=== PATIENT | male | born 1955 | race Hispanic/Latino ===

== ENCOUNTER 2018-09-09 13:35 | Inpatient (IN) | payer OTHER ==
[~2018-09-09] VITALS: Ht 170.2 cm; Wt 118.1 kg
--- OUTSIDE RECORDS SUMMARY | 2018-09-09 13:37 | XMS REPORT ---
Author [facility] Address Unknown Phone Unavailable Care Team Providers Care Warehouse Stock Clerk Name Role Phone Unavailable Unavailable Payers Payer Name Policy Type Policy Number Effective Date Expiration Date Problems This patient has no known problems. Allergies, Adverse Reactions, Alerts Allergy Name Allergy Type Status Severity Reaction(s) Onset Date Inactive Date Treating Clinician Comments No Known Drug Allergies DA Active U 2018-09-05 00:00:00 Medications This patient has no known medications. Results Test Description Test Time Test Comments Text Results Atomic Results Result Comments - NM MYOCRD SPECT R/S MULT 2018-09-06 15:15:00 FAX: Man Stein [phone] Camps: PM St: REG FAX: Giacomo Oconnor [phone] Name: PAWAN REYNOLDS [facility] : 1955 Age/S: 62/M [address] Unit #: [id number] Loc: [place] [address] Phys: Giacomo Terry MD Acct: [id number] Dis Date: Status: REG CLI PHONE #: [phone] Exam Date: 09/06/2018 1113 FAX #: Reason: CHEST PAIN EXAMS: CPT: [id number] NM MYOCRD SPECT R/S MULT 61183 SPECT myocardial perfusion study with gated wall motion and ejection fraction INDICATION: Chest pain LOCATION: T18 Resting images were obtained after administration of 11 mCi Tc-99m sestamibi and stress images were obtained after administration of 30 mCi Tc-99m sestamibi, and 0.4mg Lexiscan. PERFUSION STUDY Small reversible perfusion defect within the inferior wall. No fixed defects to suggest scar or infarct. GATED STUDY Normal wall motion , with a left ventricular ejection fraction of 56%. IMPRESSION: Inferior wall ischemia. Ejection fraction 56%. at 3193 Reported and signed by: Giacomo Lantigua M.D. CC: Man Good MD; Giacomo Terry MD Technologist: GAIL Gauthier Transcribed Date/Time/By: 09/06/2018 (9789) :Masoud Orig Print D/T: S: 09/06/2018 (7456) PAGE 1 Signed Report
--- OUTSIDE RECORDS SUMMARY | 2018-09-09 13:37 | XMS REPORT | Encounter Summary ---
Author Organization Unknown Address [address] [place] [address] Phone [phone] Care Team Providers Care Spray Painter Name Role Phone Dr. Man Reich 3 [phone] Reason for Visit Annual physical - male with PSA Instructions 1. Adult health examination CBC w/ auto diff CMP, serum or plasma lipid panel, serum TSH, serum or plasma 2. Dyspnea on exertion electrocardiogram spirometry cardiology referral 3. Chronic obstructive lung disease Symbicort 160 mcg-4.5 mcg/actuation HFA aerosol inhaler 4. Sleep apnea sleep study referral 5. Depression screening learning about depression 6. Nicotine dependence advised to quit smoking 7. Screening for malignant neoplasm of prostate PSA, serum or plasma 8. Body mass index 30+ - obesity body mass index: care instructions learning about healthy weight 9. Screening for malignant neoplasm of colon fecal occult blood, stool colonoscopy referral 10. Screening for disorder hepatitis C virus RNA, quant, PCR, serum or plasma Discussion Note: None recorded. Plan of Care Patient Goals Patient Target Smoking - How much? None Smoking - How much? None Quitting smoking is important for your health, both in the long-term and the short- term. Quitting smoking can reduce your risk of being diagnosed with life- threatening diseases such as emphysema, cancer and heart disease. Short Term Goals (between now and follow-up appointment): Cut number of cigarettes smoked daily in half Identify smoking triggers Find strategies that help reduce cravings Scheduling Analyst Goals: Fully and permanently quit smoking Improve lung function Reduce health risks by quitting smoking What can increase my chances of success for quitting smoking? Regular exercise Chew gum or hard candy Identify triggers that lead to smoking, and establish new strategies for coping with these situations Keep yourself busy Contact additional resources for support, such as [employer] Don't give up, even if you have a setback How can my healthcare team support me in quitting smoking? Follow up visits to assess progress Identify resources available to help you quit smoking Consider medication to increase your chances of successfully quitting smoking Referral to counseling for additional support Reminders Provider Appointments Return to Office on or around 09/14/2018 Man Good MD Lab CBC W/ Auto Diff 08/15/2018 [facility] CMP, Serum or Plasma 08/15/2018 [facility] PSA, Serum or Plasma 08/15/2018 [facility] Lipid Panel, Serum 08/15/2018 [facility] Fecal Occult Blood, Stool 08/15/2018 [facility] TSH, Serum or Plasma 08/15/2018 [facility] Hepatitis C Virus RNA, Quant, PCR, Serum or Plasma 08/15/2018 [facility] Referral Colonoscopy Referral 08/15/2018 Sleep Study Referral 08/15/2018 Cardiology Referral 08/15/2018 Procedures None recorded. Surgeries None recorded. Imaging Electrocardiogram 08/15/2018 [facility] ([facility] Medications Name Start Date Symbicort 160 mcg-4.5 mcg/actuation HFA aerosol inhaler Inhale 2 puffs twice a day by inhalation route as directed for 30 days. Medications Administered None recorded. Vitals Height Weight BMI Blood Pressure 5 ft 7 in 259 lbs 40.6 kg/m2 139/84 mm[Hg] Lab Results None recorded. Allergies Code Code System Name Reaction Severity Status Onset NKDA Problems No Known Problems Procedures Date Name Performed by 05/10/1999 Appendectomy Information not available 08/15/2018 Electrocardiogram [facility] ([address] [address] (Work Place) Vaccine List None recorded. Social History Smoking Status Heavy Tobacco Smoker (1/2 PPD) Past Encounters 08/15/2018 Adult Health Examination; Dyspnea on Exertion; Chronic Obstructive Lung Disease; Sleep Apnea; Depression Screening; Nicotine Dependence; Screening for Malignant Neoplasm of Prostate; Body Mass Index 30+ - Obesity; Screening for Malignant Neoplasm of Colon; Screening for Disorder Man Good MD: [address] [place] [phone], Ph. History of Present Illness Note:Coming to establish care and for a physical exam. <div>Complaining of feeling fatigued most of the time and falling asleep everywhere. Concomitantly, apneic episodes and persistent snoring at night. </div> Review of Systems Comprehensive General Adult ROS Reported By: Patient Constitutional: Constitutional: no fever, no night sweats, no significant weight gain, no significant weight loss, exercise intolerance Eyes: Eyes: no dry eyes, no vision change, no irritation ENMT: Ears: no difficulty hearing, no ear pain. Nose: no frequent nosebleeds, no nose problems, no sinus problems. Mouth/Throat: no sore throat, no bleeding gums, no snoring, no dry mouth, no mouth ulcers, no oral abnormalities, no teeth problems Cardiovascular: Cardiovascular: no chest pain, no arm pain on exertion, no shortness of breath when lying down, no palpitations, no known heart murmur, no lightheadedness, shortness of breath when walking Respiratory: Respiratory: no cough, no wheezing, no shortness of breath, no coughing up blood, sleep apnea Gastrointestinal: Gastrointestinal: no abdominal pain, no nausea, no vomiting, no constipation, normal appetite, no diarrhea, not vomiting blood, no dyspepsia, no GERD Genitourinary: Genitourinary: no incontinence, no difficulty urinating, no hematuria, no increased frequency Musculoskeletal: Musculoskeletal: no muscle aches, no muscle weakness, no arthralgias/joint pain, no back pain, no swelling in the extremities Integumentary: Skin: no abnormal mole, no jaundice, no rashes, no laceration Neurologic: Neurologic: no loss of consciousness, no weakness, no numbness, no seizures, no dizziness, no migraines, no headaches, no tremor Psychiatric: Psych: no depression, no sleep disturbances, feeling safe in a relationship, no alcohol abuse, no anxiety, no hallucinations, no suicidal thoughts Endocrine: Endocrine: fatigue Hematologic/Lymphatic: Hematologic/Lymphatic no swollen glands, no bruising, no excessive bleeding Allergic/Immunologic: Allergy/Immunologic: no runny nose, no sinus pressure, no itching, no hives, no frequent sneezing Physical Exam General Adult Exam (male) Reported By: Patient Constitutional: General Appearance: healthy-appearing, morbidly obese. Level of Distress: NAD. Ambulation: ambulating normally Psychiatric: Insight: good judgement. Mental Status: active and alert, normal mood, normal affect. Orientation: to time, to place, to person. Memory: recent memory normal, remote memory normal Head: Head: normocephalic, atraumatic Eyes: Lids and Conjunctivae: non-injected, no discharge. EOM: EOMI ENMT: Ears: TMs clear. Nose: no sinus tenderness. Lips, Teeth, and Gums: no mouth or lip ulcers. Oropharynx: moist mucous membranes Neck: Neck: supple, trachea midline. Thyroid: no enlargement, non-tender Lungs: Auscultation: breath sounds normal Cardiovascular: Heart Auscultation: RRR, normal S1, normal S2, no murmurs. Neck vessels: no carotid bruits Abdomen: Inspection and Palpation: soft, non-distended, no tenderness, no guarding Musculoskeletal:: Motor Strength and Tone: normal, normal tone. Joints, Bones, and Muscles: normal movement of all extremities, no contractures, no bony abnormalities, no malalignment, no tenderness. Extremities: no edema Neurologic: Gait and Station: normal gait. Cranial Nerves: grossly intact. Reflexes: DTRs 2+ bilaterally throughout. Coordination and Cerebellum: no tremor Skin: Inspection and palpation: no rash, no lesions Back: Thoracolumbar Appearance: normal curvature
--- OUTSIDE RECORDS SUMMARY | 2018-09-09 13:37 | XMS REPORT | Encounter Summary ---
Author Organization Unknown Address [address] [place] [address] Phone [phone] Care Team Providers Care Time Broker Name Role Phone Dr. Man Reich 3 [phone] Reason for Visit Annual physical - male [...] triggers Find strategies that help reduce cravings Client Experience Administrator Goals: Fully and permanently quit smoking Improve [...] MD Lab CBC W/ Auto Diff 08/15/2018 [facility] CMP, Serum or Plasma 08/15/2018 [facility] PSA, Serum or Plasma 08/15/2018 [facility] Lipid Panel, Serum 08/15/2018 [facility] Fecal Occult Blood, Stool 08/15/2018 [facility] TSH, Serum or Plasma 08/15/2018 [facility] Hepatitis C Virus RNA, Quant, PCR, Serum or Plasma 08/15/2018 [facility] Referral Colonoscopy Referral 08/15/2018 Sleep Study Referral 08/15/2018 Cardiology Referral 08/15/2018 Procedures None recorded. Surgeries None recorded. Imaging Electrocardiogram 08/15/2018 [facility] ([facility] Medications Name Start Date Symbicort 160 [...] 05/10/1999 Appendectomy Information not available 08/15/2018 Electrocardiogram [facility] ([address] [address] (Work Place) Vaccine List None recorded. Social History Smoking Status Heavy Tobacco Smoker (1/2 PPD) Past Encounters 08/15/2018 Adult Health Examination; Dyspnea on Exertion; Chronic Obstructive Lung Disease; Sleep Apnea; Depression Screening; Nicotine Dependence; Screening for Malignant Neoplasm of Prostate; Body Mass Index 30+ - Obesity; Screening for Malignant Neoplasm of Colon; Screening for Disorder Man Good MD: [address] [place] [phone], Ph. History of Present Illness Note:Coming to [...] no hallucinations, no suicidal thoughts Endocrine: Endocrine: no fatigue Hematologic/Lymphatic: Hematologic/Lymphatic no swollen glands, no [...]
--- NOTE | 2018-09-09 14:54 | Diagnostic Imaging Report ---
EXAM: CHEST SINGLE (PORTABLE) DATE: 09/09/2018 1:50 PM INDICATION:Shortness of breath COMPARISON: None FINDINGS: Lines and tubes: None The cardiac silhouette is moderately enlarged. There is central pulmonary vascular congestion. No peripheral consolidation, large pleural effusion or pneumothorax. Upper abdomen unremarkable. No acute bony abnormality. IMPRESSION: Medically and central pulmonary vascular congestion with interstitial edema. No localized consolidation or pleural effusion. Signed by: Dr. Gus Paul M.D. on 09/09/2018 2:51 PM
[2018-09-09] MEDS ORDERED: ALBUTEROL SULF 0.083% NEB SOLN 3 ML NEB NEB STA (15:10)
[2018-09-09] MEDS ORDERED: IPRATROPIUM BROMIDE 0.02% 2.5 ML NEB NEB ONE (15:15)
[2018-09-09] MEDS ORDERED: METHYLPREDNISOLONE SOD SUCC 125 MG/2ML VIAL IV STA (15:32)
[2018-09-09 15:37] LABS: BASOPHILS % 0.1 % (0.0-1.0); EOSINOPHILS % 0.1 % (0.0-6.0); HEMATOCRIT 58.7 % (38.2-49.6); HEMOGLOBIN 18.7 g/dL (14.0-18.0); LYMPHOCYTES # (AUTO) 0.9 (1.0-3.2); LYMPHOCYTES % 12.7 % (18.0-39.1); MEAN CORPUSCULAR HEMOGLOBIN 30.8 pg (28-32); MEAN CORPUSCULAR HGB CONC 31.9 g/dL (31-35); MEAN CORPUSCULAR VOLUME 96.7 fL (81-99); MONOCYTES # (AUTO) 0.2 (0.2-0.8); MONOCYTES % 3.1 % (4.4-11.3); NEUTROPHILS % 83.4 % (38.7-80.0); PLATELET COUNT 127 x10e3/uL (140-360); RED BLOOD COUNT 6.07 x10e6/uL (4.3-5.7); RED CELL DISTRIBUTION WIDTH 14.9 % (11.7-14.4)
[2018-09-09] MEDS ORDERED: ONDANSETRON HCL INJ 2MG/ML 2ML 2 MG/ML VIAL IV PRN (17:30)
[2018-09-09] MEDS ORDERED: FUROSEMIDE INJ 10 MG/ML 4 ML VIAL IV ONE (17:30)
[2018-09-09] MEDS ORDERED: NITROGLYCERIN 0.4 MG SUBL SL PRN (17:30)
[2018-09-09] MEDS ORDERED: DEXTROSE 50% SYRINGE 50 ML IV PRN (17:30)
[2018-09-09 17:47] LABS: ABG PCO2 73 mmHg (41-51); ABG PH 7.24 (7.31-7.41)
[2018-09-09 17:48] LABS: ABG HCO3 31 mmol/L (23-28); ABG PO2 71 mmHg (80-105)
[2018-09-09 18:26] LABS: ANION GAP 13.1 mmol/L (8-16); BUN/CREATININE RATIO 11 (6-25); EST GLOMERULAR FILTRATION RATE > 60 ML/MIN (60-)
[2018-09-09 18:27] LABS: SODIUM 140 mmol/L (136-144)
[2018-09-09 18:28] LABS: BLOOD UREA NITROGEN 8 mg/dL (8-26); CARBON DIOXIDE 36 mmol/L (22-32); CHLORIDE 96 mmol/L (101-111); CREATININE, SERUM 0.7 mg/dL (0.9-1.3); GLUCOSE 125 mg/dL (74-118); POTASSIUM 5.1 mmol/L (3.6-5.1)
--- NOTE | 2018-09-09 18:50 | NUR ---
REPORT GIVEN TO ELMA HERNANDEZ WATER MECHANIC NURSE.
[2018-09-09] MEDS ORDERED: no home meds (19:43)
[2018-09-09 19:50] LABS: INR 0.86; PROTHROMBIN TIME 12.2 seconds (11.9-14.5)
[2018-09-09] MEDS: CEFTRIAXONE SOD 1 GM/NS 50 ML 50 ML IV SCH (19:52)
[2018-09-09] MEDS: AZITHROMYCIN 500MG/NS 250 ML 250 ML IV SCH (19:52)
[2018-09-09] MEDS: IPRATROPIUM BROMIDE 0.02% 2.5 ML NEB NEB SCH ×2 (19:55→23:00)
[2018-09-09] MEDS: ALBUTEROL SULF 0.083% NEB SOLN 3 ML NEB NEB SCH ×2 (19:56→23:00)
[2018-09-09 20:11] LABS: ALANINE AMINOTRANSFERASE 41 IU/L (0-55); ALBUMIN 3.6 g/dL (3.5-5.0); ALBUMIN/GLOBULIN RATIO 0.8 (0.8-2.0); ALKALINE PHOSPHATASE 91 IU/L (40-150); CALCIUM 9.6 mg/dL (8.4-10.2); CREATINE KINASE 67 IU/L (30-200)
--- NOTE | 2018-09-09 20:40 | NUR ---
Received from ER via bed, bi-pap in use, awake alert and oriented x 3. No c/o pain or discomfort at this time
[2018-09-09 20:45] VITALS: BP 122/53
[2018-09-09 21:00] VITALS: BP_SYST 110; BP_SYST 138; BP_DIAS 57; BP_DIAS 86
[2018-09-09] MEDS ORDERED: PNEUMOCOCCAL VACCINE POLYVALENT 23 MCG/0.5 ML VIAL IM SCH (21:19)
[2018-09-09 22:00] VITALS: BP_SYST 114; BP_DIAS 57; BP_DIAS 58
[2018-09-09] MEDS ORDERED: FUROSEMIDE INJ 10 MG/ML 2 ML VIAL IV ONE (22:30)
[2018-09-09 23:00] VITALS: BP_SYST 113; BP_SYST 138; BP_DIAS 57; BP_DIAS 86
[2018-09-09] MEDS: INSULIN LISPRO 100 UNIT/1 ML 3ML VIAL SQ SCH (23:42)
[2018-09-10] VITALS (24 sets, daily range): BP systolic 114–160; BP diastolic 61–81
--- NOTE | 2018-09-10 01:25 | Consultation ---
DATE OF CONSULTATION: Pulmonary Critical Care Consultation CHIEF COMPLAINT: Dyspnea and desaturations during a colonoscopy. HISTORY OF PRESENT ILLNESS: The patient is a 62-year-old man. He has a history of a sleep study many years ago at [facility], but does not use CPAP on a regular basis as an outpatient. He does have difficulty breathing at night and becomes short of breath when he lies flat. He also has some snoring and some daytime somnolence. He also reports prior smoking and uses 2 different inhalers at home. The patient was recently evaluated by Cardiology. He had an echocardiogram and outpatient stress test with imaging. Apparently, he had ejection fraction in the 55-60% range, but had a reversible defect in his inferior wall and a cardiac catheterization was recommended. Today, he went for an outpatient colonoscopy at the [facility] endoscopy. Apparently, shortly after receiving induction and anesthesia, he developed desaturations and the procedure had to be aborted. He was subsequently transferred to the emergency department. He was found to have some pulmonary edema on x-ray as well as a respiratory acidosis with a low pH on his ABG. He was started on BiPAP and received diuretics with some improvement. PAST SURGICAL HISTORY: 1. Status post appendectomy. 2. No history of head or neck surgery. 3. No history of heart or lung surgery. PAST MEDICAL HISTORY: 1. Possible obstructive sleep apnea. 2. Possible COPD. The patient does use inhalers. 3. Possible coronary artery disease. ALLERGIES: NO KNOWN DRUG ALLERGIES. FAMILY HISTORY: Family history is noncontributory. SOCIAL HISTORY: The patient recently quit smoking. He is not an active drinker. 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 REVIEW OF SYSTEMS: He denies any headache. He has no fevers. He has no neck pain. He has no swollen glands. His oropharynx is normal. He does not complain of any chest pain. He does note dyspnea as well as orthopnea. He has no abdominal pain. He has no nausea or vomiting. He does have some chronic leg edema. He has no focal neurological abnormalities. PHYSICAL EXAMINATION: VITAL SIGNS: The patient is afebrile. The blood pressure is 123/66 and saturation is 96%. The pulse is 76. Respiratory rate is 17. HEENT: Shows no facial swelling or erythema. The nasal mucosa is normal. The oropharynx is normal. LYMPHATIC: Shows no submandibular, cervical, or supraclavicular adenopathy. CARDIAC: Reveals regular rate and rhythm with normal S1 and S2. There are no murmurs or rubs. CHEST: Auscultation of lungs reveals crackles at both bases. There is prolonged expiratory phase. ABDOMEN: Soft, nontender. There is no rebound or guarding. EXTREMITIES: Shows chronic leg edema. NEUROLOGIC: Shows no focal abnormalities. LABORATORY DATA: Blood gas shows a pH of 7.24 with a CO2 of 73, and O2 of 71 and a bicarb of 31. The BUN to creatinine ratio is normal. The electrolytes are significant for a bicarbonate of 36. RADIOGRAPHIC DATA: Chest x-ray shows pulmonary vascular congestion and interstitial edema consistent with congestive heart failure. IMPRESSION: 1. Acute on chronic respiratory failure. 2. Acute on chronic diastolic heart failure. 3. Obstructive sleep apnea. 4. Chronic lymphedema. PLAN: 1. The patient will be continued on BiPAP and observed in the ICU overnight. 2. Continue diuretics. Consider using some Diamox to prevent worsening elevation of the serum bicarbonate. 3. Continue bronchodilators. 4. Antibiotics. 5. Cardiology evaluation. 6. Case discussed with the patient and . MD BRIDGET Melgar/MOR /[id number]
[2018-09-10] MEDS: ALBUTEROL SULF 0.083% NEB SOLN 3 ML NEB NEB SCH ×6 (02:55→22:40)
[2018-09-10] MEDS: IPRATROPIUM BROMIDE 0.02% 2.5 ML NEB NEB SCH ×6 (02:55→22:40)
[2018-09-10 03:09] LABS: CREATINE KINASE MB 2.1 ng/mL (0-5.0)
--- NOTE | 2018-09-10 03:26 | NUR ---
patient very restless, stood up at bedside and removed bi-pap mask, heart rate became elevated to 120's and oxygen saturation dropped quickly. Assisted back to bed and bi-pap replaced, hr returned to 107 and saturation now 97%. Patient remains restless and wants to walk around, informed him that he could not walk around and needed to remain on bi-pap for the immediate future
--- NOTE | 2018-09-10 04:15 | NUR ---
REMAINS VERY AGITATED, TAKEN OFF BIPAP AND PLACED ON 4 L/MIN NASAL CANNULA
--- NOTE | 2018-09-10 04:30 | NUR ---
PATIENT MUCH CALMER AT THIS TIME AND VS HAVE ALL RETURNED TO WNL
[2018-09-10 06:17] LABS: ABG PH 7.32 (7.31-7.41)
[2018-09-10 06:18] LABS: ABG HCO3 33 mmol/L (23-28); ABG PCO2 65 mmHg (41-51); ABG PO2 233 mmHg (80-105)
[2018-09-10 06:32] LABS: ALANINE AMINOTRANSFERASE 38 IU/L (0-55); ALBUMIN 3.2 g/dL (3.5-5.0); ALBUMIN/GLOBULIN RATIO 0.7 (0.8-2.0); ALKALINE PHOSPHATASE 87 IU/L (40-150); BLOOD UREA NITROGEN 9 mg/dL (7-26); BUN/CREATININE RATIO 9 (6-25); CALCIUM 9.5 mg/dL (8.4-10.2); CARBON DIOXIDE 32 mmol/L (22-29); CHLORIDE 96 mmol/L (98-107); CHOL/HDL RATIO 3.7 (3.9-4.7); CHOLESTEROL 171 MD/DL (0-199); CREATININE, SERUM 1.03 mg/dL (0.72-1.25); EST GLOMERULAR FILTRATION RATE > 60 ML/MIN (60-); GLUCOSE 346 mg/dL (74-118); HDL CHOLESTEROL 46 MG/DL (40-60); LDL CHOLESTEROL 87 MG/DL (60-130); SODIUM 138 mmol/L (136-145); TRIGLYCERIDES 192 MG/DL (0-149)
--- NOTE | 2018-09-10 06:36 | Consultation ---
DATE OF CONSULTATION: 09/09/2018 Cardiology Consultation Note CC to Dr. Rachid Shannon. Mr. Flower is a 62-year-old gentleman well known to our service. He was previously in consultation in office on September 02, 2018. He does have primary care physician, Dr. Rachid Harmon. 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 He does have multiple cardiac risk factors: Including a smoking history of 1 pack per day for 4-5 years, and a brother who had myocardial infarction at age 58. He denies any prior history of myocardial infarction or angina. HISTORY OF PRESENT ILLNESS: The patient had complained of central chest pressure that happened for 5 minutes at a time when he was originally seen in consultation on September 02, 2018. The chest pressure was atypical and was nonpleuritic and was improved by hyperextension of his back or changing to sitting up from supine position. There is no radiation to arms and neck. There is no night time awakening with the chest pressure. The chest pressure is not necessarily provoked with emotional or physical stress. It did occur sometimes after eating and drinking. There is no associated water brash. It was not associated with any dyspnea, fatigue, diaphoresis or nausea. The chest pressure would occur once a month to multiple times in a day. As a part of his workup, we did complete a Lexiscan Cardiolite Scan on September 06, 2018. This study completed at [facility], [place] which showed a reversible defect in the inferior wall. There were no defects suggestive of scar. The left ventricular ejection fraction is estimated to be 56%. We also completed an echocardiogram on September 08, 2018. This showed left ejection fraction range of 50 to 55% with mild concentric left ventricular hypertrophy and left ventricular diastolic dysfunction. Valvular heart disease was limited to mild aortic stenosis, trace mitral regurgitation, mild tricuspid regurgitation and trace pulmonary regurgitation. Pulmonary arterial systolic pressure was up to 34 mmHg (normal limits). The patient had been given a bowel prep to take on the evening of September 08, 2018. He said he felt well dyspneic. During the colonoscopy, he had progressive desaturation down to 45%. There was an attempt of intubation, which was not successful (endotracheal) followed by attempt of placement of LMA. This was not successful either. The patient was then spontaneously awakened and had good oxygen saturation. He was sent to emergency room for further evaluation. He was told that he had suction of blood and mucous from his upper airway. At this point in time, he is comfortable. He originally was given BiPAP in the ER but was comfortable sitting in bed on 4 L/min of nasal cannula and was chatting with his at bedside. At baseline, he states he can walk about 2 blocks on level limited by dyspnea. He sleeps about 3 hours at a time with multiple awakening during the night. He is awaiting sleep study for obstructive sleep apnea. PAST MEDICAL HISTORY: This is otherwise notable for history of COPD. He had an appendectomy in 1999. ALLERGIES: HE HAS NO DRUG ALLERGIES TO MEDICATIONS. HOME MEDICATIONS: These included Symbicort 160/4.5 mcg inhalation treatment taking 2 puffs twice a day. The patient on this admission had been given IV Lasix for diuresis. SOCIAL HISTORY: He does smoke. There is no history of alcohol excess or recreational drug use. FAMILY HISTORY: Notable for mother who had diabetes mellitus (type 2), his father had diabetes mellitus (type 2). There is no additional family history aside from a brother with myocardial infarction at age of 58. REVIEW OF SYSTEMS: A 14-point review of systems including integumentary, neurological, cardiac, pulmonary, digestive, urological, musculoskeletal and psychiatric systems all were negative and noncontributory. PHYSICAL EXAMINATION: GENERAL: The patient is in no acute distress. VITAL SIGNS: Showed a blood pressure of 114/58, resting heart rate 70 bpm, respiratory rate 20 breaths per minute. He is afebrile. HEAD AND NECK: He had no carotid upstroke and amplitude No carotid bruits. I cannot appreciate any cervical lymphadenopathy or thyromegaly. CARDIOVASCULAR: JVP was 2 to 3 cm above the sternal angle. He had a regular S1 and S2. I could appreciate a 1/6 systolic murmur at left sternal border. There are no gallops or rubs. CHEST: He had a midline trachea. He had a few scattered crackles at both lung bases. There were no focal wheezes. There was no bronchovesicular breath sounds. ABDOMEN: Soft, nontender. No hepatosplenomegaly. There is mild distention. There are no abnormal masses or bruits. EXTREMITIES: He does have mild bilateral peripheral edema. Peripheral pulses Peripheral pulses were graded at 1+ bilaterally for his dorsalis pedis and posterior tibial pulses. IMAGING DATA: Chest x-ray, the chest x-ray completed on September 09, 2018 at 1415 hours showed central pulmonary vascular congestion with interstitial edema. There is no focal consolidation or pleural effusion. EKG: We do have 12-lead EKG compared to September 09, 2018 at 1438 hours. This shows sinus rhythm with 77 beats per minute. He does have poor precordial R-wave progression and a nonspecific bundle branch block pattern. There is also leftward frontal plane axis. He does have nonspecific J-point elevation in lead 1 and aVL and in leads V4 through V6 of under 1 mm. There is also suggestion of left atrial enlargement. In addition there was a suggestion of a previous inferior myocardial infarction, this was based on small Q waves in leads 2 and aVF. LABORATORY DATA: Labs on admission included cardiac enzymes which were negative for a VT. Serum electrolytes showed sodium 140, potassium 5.1, BUN of 8, creatinine 0.7. We do have a CBC with normal white count of 7.19, hemoglobin of 18.7, hematocrit 58.7% and platelet count 127. IMPRESSION: Overall, it was felt that Mr. Devan Flower presents as 62-year-old with cardiac risk factors including an ongoing smoking history and a family history of premature coronary artery disease. We do know from his Lexiscan Cardiolite scan completed at [facility] on September 06, 2018 that there is was a reversible defect in khadijah inferior wall, with a preserved left ejection fraction ranging 50%-60%. This mostly correlated with his echocardiogram with a left ejection fraction range of 50 to 55%. We also know he has valvular heart disease including mild aortic stenosis, trace mitral regurgitation. His PA systolic pressures are normal with mild tricuspid regurgitation and trace pulmonary regurgitation. At this point in time, he is presenting with congestive heart failure decompensation in the midst of colonoscopy. It is unclear what role the bowel preparation had in contributing to his congestive heart failure decompensation. He had desaturated during the procedure. This may be due to a combination of volume load as well as elements of COPD. Nevertheless, he spontaneously spontaneously recovered and at present, he is comfortable with nasal cannula at 4 L a minute with oxygen saturation in the 90s. He does not voice any chest pain on this occasion. I would recommend one more set of cardiac enzymes in the morning. If this is negative, we recommend him to be discharged home with outpatient followup within the next few days. I would suggest continuing Lasix 20 mg p.o. daily as an outpatient. Other concurrent problems include his underlying chronic obstructive pulmonary disease. He was advised to quit smoking. He does have a recognized old inferior VT pattern in the EKG, although this was not apparent in the nuclear imaging. He does have a history of valvular heart disease as outlined above. He does have history of occasional leg cramps. He does have diminished peripheral pulses. We had requested an arterial Doppler and it was completed at the office already, results still pending. RECOMMENDATIONS: As above. He appears to be hemodynamically stable and we are continuing with IV Lasix and diuresis. Thank you once again for asking me to participate in the care of your patient. Giacomo Terry MD [facility]/MODL /[id number] cc: Rachid Harmon MD MTDD
--- NOTE | 2018-09-10 07:00 | Diagnostic Imaging Report ---
EXAMINATION: CHEST SINGLE (PORTABLE) INDICATION: ^resp failure ^[id number] ^[id number] COMPARISON: 09/29/2018 FINDINGS: AP view TUBES and LINES: None. LUNGS: Limited by body habitus and low lung volumes. Pulmonary vascular congestion and mild interstitial edema. PLEURA: No visible pneumothorax. Bilateral pleural effusions, moderate on the right side and small on the left. HEART AND MEDIASTINUM: The cardiomediastinal silhouette is enlarged. BONES AND SOFT TISSUES: No acute osseous lesion. Soft tissues are unremarkable. UPPER ABDOMEN: No free air under the diaphragm. IMPRESSION: Limited as above. Enlarged cardiomediastinal silhouette, pulmonary vascular congestion, mild interstitial edema, and bilateral pleural effusions. Underlying pneumonia cannot be excluded in the lower lung cunningham in the appropriate clinical context. Signed by: Dr. Franklyn Ramirez MD on 09/10/2018 6:57 AM
--- NOTE | 2018-09-10 07:40 | NUR ---
H&P cc: sob HPI: 62yoM, PCP , cardio-, developed sob after having colonoscopy. Pt did receive bowel prep with Na solution and admits to eating lost of salty foods over past week. Unaware he had CHF. Had recent stress test and echo. PMH: diastolic CHF, DM2, COPD, morbid obesity, current smoker, stroke PHSx: appendectomy Allergies; see emr FH/SH; girlfriend involved in care; 1/2ppd cigs; Meds; see MAR ROS: no f/c/s/N/V/D/TO/vision changes/dizziness/leg pain/back pain v/s; revd PE: tired appearing anicteric ns1s2; 3/6 murmur reduced breath sounds; Crackles at bases; skin dry 1+ leg edema B/L flat affect a&ox3; ahmadi labs/meds revd A/P: 62yoM AECHF-diastolic B/L pelural effusion Pulmonary edema Acute Hypercapneic respiratory failure DM2 Morbid obesity BMI 41 COPD Current smoker PLAN BIPAP diurese Nebs/IV abx hba1c lovenox/pepcid cct>35mins Nolan Montesinos MD, PhD.
[2018-09-10] MEDS: INSULIN LISPRO 100 UNIT/1 ML 3ML VIAL SQ SCH ×4 (07:53→20:47)
[2018-09-10 08:20] LABS: BASOPHILS % 0.1 % (0.0-1.0); HEMOGLOBIN 18.6 g/dL (14.0-18.0); LYMPHOCYTES % 10.1 % (18.0-39.1); MEAN CORPUSCULAR HEMOGLOBIN 30.6 pg (28-32); MEAN CORPUSCULAR HGB CONC 31.5 g/dL (31-35); MEAN CORPUSCULAR VOLUME 97.2 fL (81-99); MONOCYTES # (AUTO) 0.7 (0.2-0.8); MONOCYTES % 6.5 % (4.4-11.3); NEUTROPHILS # (AUTO) 8.5 (2.1-6.9); NEUTROPHILS % 82.1 % (38.7-80.0); PLATELET COUNT 132 x10e3/uL (140-360); RED BLOOD COUNT 6.07 x10e6/uL (4.3-5.7); RED CELL DISTRIBUTION WIDTH 14.5 % (11.7-14.4)
[2018-09-10 08:27] LABS: CREATINE KINASE MB 1.9 ng/mL (0-5.0)
[2018-09-10 09:35] LABS: ABG PH 7.28 (7.31-7.41)
[2018-09-10 09:36] LABS: ABG HCO3 34 mmol/L (23-28); ABG PCO2 72 mmHg (41-51); ABG PO2 62 mmHg (80-105)
--- NOTE | 2018-09-10 10:47 | Progress Note ---
DATE: Pulmonary Critical Care Progress Note SUBJECTIVE: The patient received diuretics yesterday. He feels better today, although he is still requiring oxygen by nasal cannula. PHYSICAL EXAMINATION: VITAL SIGNS: The blood pressure is 148/70 and saturation is 96% on 4 L. HEENT: Shows no facial swelling or erythema. The nasal mucosa is normal. The oropharynx is normal. LYMPHATIC: Shows no submandibular, cervical, or supraclavicular adenopathy. CARDIAC: Reveals regular rate and rhythm with normal S1 and S2. There are no murmurs or rubs. Auscultation of lungs shows clear breath sounds bilaterally. There is no wheezing. ABDOMEN: Soft and nontender. There is no rebound or guarding. EXTREMITIES: Show no leg edema or calf tenderness. There is no cyanosis or clubbing. SKIN: Shows no rashes. NEUROLOGICAL: Shows no focal abnormalities. LABORATORY DATA: White blood cell count is 10.3 and hemoglobin is 18.6. The platelet count is 132. BUN to creatinine ratio is normal. The blood sugar is 250-320. Blood gas is 7.32, 65, 233, and 33. RADIOGRAPHIC DATA: Chest x-ray shows enlarged cardiac silhouette. There is bilateral effusions and some interstitial edema. IMPRESSION: 1. Acute on chronic respiratory failure. 2. Chronic obstructive pulmonary disease with acute exacerbation. 3. Acute on chronic diastolic heart failure. 4. Obstructive sleep apnea. PLAN: 1. The patient should be continued on oxygen. 2. Continue diuretics. 3. Arrange for outpatient sleep study and BiPAP at home. 4. Smoking cessation. Kevin Redmond MD [facility]/MODL /[id number]
--- NOTE | 2018-09-10 11:06 | NUR ---
Nutrition Screen Note RD Recommendation for Physician: Continue diet as ordered Plan of Care: RD following, monitoring for adequacy and tolerance Nutrition reason for involvement: (MD Consult, RN Consult, Nutrition Risk Trigger - CHF Primary Diagnose(s): CHF, COPD Ht: 67in Wt:262lbs BMI:41 kg/m2 IBW:148lbs RD Assessment:(09/10/2018) Current Diet: 1800 ADA Malnutrition Evaluation 09/10/2018 The patient does not meet criteria for a specified degree of malnutrition at this time. Will re-evaluate at follow-up as appropriate. Diet Education Needs Assessment: Diet education not indicated. Pt is familiar with a low sodium diabetes diet Diet Adequacy: Meeting calorie needs, Meeting protein needs, Meeting fluid needs Tolerance: Tolerating PO Nutrition Care Level: Mc Gordillo RD, LD, [facility]
[2018-09-10] MEDS: ASPIRIN 81 MG ENTERIC COATED PO SCH (11:11)
[2018-09-10 15:00] LABS: CREATINE KINASE MB 1.6 ng/mL (0-5.0)
[2018-09-10] MEDS: CEFTRIAXONE SOD 1 GM/NS 50 ML 50 ML IV SCH (19:46)
[2018-09-10] MEDS: AZITHROMYCIN 500MG/NS 250 ML 250 ML IV SCH (19:46)
[2018-09-10] MEDS ORDERED: PNEUMOCOCCAL VACCINE POLYVALENT 23 MCG/0.5 ML VIAL ONE (19:56)
--- NOTE | 2018-09-10 20:15 | NUR ---
PATIENT AMBULATED IN HALLWAY WITHOUT OXYGEN, O2 SAT DECREASED TO 82%. RETURNED TO CHAIR IN ROOM AND PLACED ON 4 L/MN PER NASAL CANNULA WITH RESULTING OXYGEN INCREASE TO GREATER THAN 92%
[2018-09-10] MEDS ORDERED: FUROSEMIDE INJ 10 MG/ML 4 ML VIAL IV ONE (20:45)
[2018-09-11] VITALS (15 sets, daily range): BP systolic 111–145; BP diastolic 66–87
[2018-09-11] MEDS: IPRATROPIUM BROMIDE 0.02% 2.5 ML NEB NEB SCH ×4 (02:35→14:50)
[2018-09-11] MEDS: ALBUTEROL SULF 0.083% NEB SOLN 3 ML NEB NEB SCH ×4 (02:35→14:50)
[2018-09-11 05:50] LABS: BASOPHILS % 0.3 % (0.0-1.0); EOSINOPHILS % 0.2 % (0.0-6.0); HEMATOCRIT 58.4 % (38.2-49.6); HEMOGLOBIN 18.3 g/dL (14.0-18.0); LYMPHOCYTES # (AUTO) 2.9 (1.0-3.2); LYMPHOCYTES % 23.8 % (18.0-39.1); MEAN CORPUSCULAR HEMOGLOBIN 30.4 pg (28-32); MEAN CORPUSCULAR HGB CONC 31.3 g/dL (31-35); MONOCYTES % 8.5 % (4.4-11.3); NEUTROPHILS # (AUTO) 8.1 (2.1-6.9); NEUTROPHILS % 66.7 % (38.7-80.0); PLATELET COUNT 117 x10e3/uL (140-360); RED BLOOD COUNT 6.02 x10e6/uL (4.3-5.7); RED CELL DISTRIBUTION WIDTH 14.6 % (11.7-14.4)
[2018-09-11 06:22] LABS: ANION GAP 15.8 mmol/L (8-16); BLOOD UREA NITROGEN 10 mg/dL (7-26); BUN/CREATININE RATIO 13 (6-25); CALCIUM 9.4 mg/dL (8.4-10.2); CARBON DIOXIDE 35 mmol/L (22-29); CHLORIDE 95 mmol/L (98-107); EST GLOMERULAR FILTRATION RATE > 60 ML/MIN (60-); GLUCOSE 120 mg/dL (74-118); POTASSIUM 3.8 mmol/L (3.5-5.1); SODIUM 142 mmol/L (136-145)
[2018-09-11] MEDS: ASPIRIN 81 MG ENTERIC COATED PO SCH (08:02)
[2018-09-11] MEDS: FAMOTIDINE 20 MG TAB PO SCH ×2 (08:02→16:28)
[2018-09-11] MEDS: INSULIN LISPRO 100 UNIT/1 ML 3ML VIAL SQ SCH ×3 (08:03→16:29)
--- NOTE | 2018-09-11 11:11 | Progress Note ---
DATE: Pulmonary Critical Care Progress Note SUBJECTIVE: The patient had more diuresis yesterday. He feels better but still has low saturations with ambulation. PHYSICAL EXAMINATION: VITAL SIGNS: The patient is afebrile. The vital signs are stable. HEENT: Shows no facial swelling or erythema. LYMPHATIC: Shows no submandibular, cervical or supraclavicular adenopathy. CARDIAC: Reveals irregularly irregular rhythm with normal S1 and S2. LUNGS: Auscultation of lungs reveals rhonchorous breath sounds bilaterally. There is no wheezing. ABDOMEN: Soft, nontender. There is no rebound or guarding. EXTREMITIES: Show 1 to 2+ leg edema. IMPRESSION: 1. Chronic obstructive pulmonary disease with acute exacerbation. 2. Acute on chronic respiratory failure. 3. Acute on chronic diastolic heart failure. 4. Obstructive sleep apnea. PLAN: 1. The patient will need Spiriva once daily along with a rescue inhaler at home. 2. Evaluation for home oxygen. 3. Arrange for outpatient sleep test. 4. Smoking cessation. 5. Pulmonary function testing as an outpatient. MD BRIDGET Melgar/MOR /[id number]
[2018-09-11 11:53] LABS: LYMPHOCYTES % (MANUAL) 16 % (19-48); MONOCYTES % (MANUAL) 7 % (3.4-9.0); NEUTROPHILS % (MANUAL) 72 % (40-74); PLATELET ESTIMATE SLIGHTLY DECREASED
[2018-09-11 11:54] LABS: PLATELET MORPHOLOGY COMMENT NORMAL
[2018-09-11 11:55] LABS: RBC MORPHOLOGY COMMENT NORMAL
--- NOTE | 2018-09-11 13:20 | NUR ---
PATIENT ANXIOUS AND WANTING TO GO HOME WITH HIS . HE MEETS CRITERIA FOR HOME OXYGEN. SIGNED CHOICE LETTER FOR [facility]. NOTIFIED HUBERT SHRESTHA AND FAXED CLINICAL AND TELEPHONE ORDER. UPDATED MILE WILLS AND ALSO PT. [facility] OFFICE [phone] HUBERT SHRESTHA: [phone] FAX: [phone]
--- NOTE | 2018-09-11 14:00 | NUR ---
DIscharge summary: Principal dx: AECHF-diastolic B/L pelural effusion Pulmonary edema Acute Hypercapneic respiratory failure Secondary Dx: DM2 Morbid obesity BMI 41 COPD Current smoker PLAN BIPAP diurese Nebs/IV abx hba1c lovenox/pepcid cct>35mins Hypoxic- SaO2 as low as 82% on RA; O2 needed at home. continue diuresis; sleep study outt. d/c home with O2 f/u PCP 1 week and 1 week and 1 week IMproving; stable d/c>35mins Nolan Montesinos MD, PhD.
[2018-09-11] MEDS ORDERED: PROVENTIL HFA6.7 GM INH (14:07)
[2018-09-11] MEDS ORDERED: LASIX20 MG PO (14:07)
[2018-09-11] MEDS ORDERED: PRAVASTATIN SOD20 MG PO (14:07)
[2018-09-11] MEDS ORDERED: LEVAQUIN500 MG PO (14:07)
[2018-09-11] MEDS ORDERED: CARVEDILOL3.125 MG PO (14:07)
[2018-09-11] MEDS ORDERED: ASPIRIN EC81 MG PO (14:07)
[2018-09-11] MEDS ORDERED: PREDNISONE20 MG PO (14:07)
[2018-09-11] MEDS ORDERED: FAMOTIDINE20 MG PO (14:07)
[2018-09-11] MEDS ORDERED: TESSALON PERLE100 MG PO (14:07)
--- NOTE | 2018-09-11 15:15 | NUR ---
Visit made by the Spiritual Care Department Pastoral Visitor, Jasen Zabala. PV provided pastoral presence, hospitality, and supportive listening. Pastoral Visitor informed pt/family of the scope of State [employer] Services and availability. MARILUZ ANN Oil Expert Spiritual Care Department O: [phone] Pager: [phone] ([phone] calling from)
[2018-09-11] MEDS ORDERED: ENOXAPARIN SOD INJ 40 MG/0.4 ML SYR SC SCH (17:00)
--- NOTE | 2018-09-11 18:34 | NUR ---
patient discharged home with significant other. Oxygen tank delivered at bedside by yarelis. yarelis to follow patient home with home equipment. p.iv removed. patient educated with medication compliance, disease processes, smoking cessation, and follow up discharge instructions. reviewed all discharge medications with both patient and significant other. written instructions also given. scripts given as well. patient left with all belongings. both verbalized understanding of all instructions and discharge plan of care. patient not in distress upon discharge and agreed with plan of care. pt escorted to front lobby via wheelchair and safely in care of family.
== END 2018-09-11 17:00 | disposition home or self-care (01) | DRG 291 ==
LOC: ER 13:35 → ERHOLD 17:48 → ICU 20:42
PROVIDERS: ADMIT Internal Medicine; ATTEND Internal Medicine
PROC: 5A09357 Assistance with Respiratory Ventilation, Less than 24 Consecutive Hours, Continuous Positive Airway Pressure (ICD-10-PCS; principal; 2018-09-09)
PROC: 3E0234Z Introduction of Serum, Toxoid and Vaccine into Muscle, Percutaneous Approach (ICD-10-PCS; 2018-09-10)
DX: I50.33 Acute on chronic diastolic (congestive) heart failure (principal); J96.22 Acute and chronic respiratory failure with hypercapnia; Z68.41 Body mass index [BMI] 40.0-44.9, adult; J44.1 Chronic obstructive pulmonary disease with (acute) exacerbation; F17.210 Nicotine dependence, cigarettes, uncomplicated; E66.9 Obesity, unspecified; I89.0 Lymphedema, not elsewhere classified; Z99.81 Dependence on supplemental oxygen; E78.5 Hyperlipidemia, unspecified; G47.33 Obstructive sleep apnea (adult) (pediatric); Z86.73 Personal history of transient ischemic attack (TIA), and cerebral infarction without residual deficits; D75.1 Secondary polycythemia; I08.3 Combined rheumatic disorders of mitral, aortic and tricuspid valves; Z79.82 Long term (current) use of aspirin; Z23 Encounter for immunization
CPT/HCPCS: 36415; 36600; 71045; 80048; 80053; 80061; 82550; 82553; 82805; 82948; 83036; 83880; 84484; 85025; 85379; 85610; 85730; 90732; 93005; 94640; 94660; 99284; J0456; J0696; J1940; J2930